=== PATIENT | female | born 1995 | race Caucasian/White ===

== ENCOUNTER 2023-05-06 12:39 | Emergency (ER) | payer BC ==
[~2023-05-06] VITALS: Ht 170.2 cm; Wt 89.8 kg
--- NOTE | 2023-05-06 13:11 | ED Abdominal Pain ---
General Stated Complaint: CRAMPING/ UNKOWN WEEKS Source of Information: Patient Exam Limitations: No Limitations History of Present Illness Date Seen by Provider: May 06, 2023 Time Seen by Provider: 13:09 Initial Comments Patient is a 28-year-old female who is G4, P3 presents to ED for concern for . She states she took a test at home 2 days ago tested positive. She states over the past month she has had some mild lower abdominal cramping. No specific abdominal bleeding. Last menstrual cycle was December 16. History of irregular menstrual cycles typically improves with exercise. She has lost 70 pounds since July but has been taking phentermine as well as fluoxetine. She stopped the medication 2 days ago. She called around to area [facility] and recommended to come the ED. She has no specific pain at this time. No history of hypertension or diabetes. She does report some morning sickness. She reports bloating sensation in her abdomen with very minimal cramping. She denies fever chills pain with urination frequent urination vaginal discharge, chest pain, shortness of breath, headache or dizziness. Patient in no acute distress. Allergies and Home Medications Allergies Coded Allergies: No Known Drug Allergies (Unverified , 05/06/23) Patient Home Medication List Home Medication List Reviewed: Yes Review of Systems Review of Systems Constitutional: No chills, No diaphoresis, No fever, No malaise, No weakness EENTM: No Double Vision, No Eye Pain Respiratory: Denies Cough, Denies Orthopnea Cardiovascular: Denies Chest Pain Gastrointestinal: Abdominal Pain; Denies Diarrhea; Nausea; Denies Vomiting Genitourinary: Denies Burning, Denies Discharge, Denies Drainage, Denies Frequency, Denies Flank Pain Musculoskeletal: No back pain, No joint pain Skin: No change in color, No change in hair/nails All Other Systems Reviewed Negative Unless Noted: Yes Physical Exam Vital Signs Vital Signs - First Documented 05/06/23 12:52 Temp 36.9 Pulse 82 Resp 19 B/P (MAP) 148/86 (106) O2 Delivery Room Air Capillary Refill : Height/Weight/BMI Height: '" Weight: lbs. oz. kg; BMI Method: General Appearance: WD/WN, no apparent distress HEENT: PERRL/EOMI, normal ENT inspection, TMs normal, pharynx normal Neck: non-tender, full range of motion, supple Respiratory: chest non-tender, lungs clear, normal breath sounds, no respiratory distress, no accessory muscle use Cardiovascular: regular rate, rhythm, no edema, no gallop, no JVD Gastrointestinal: normal bowel sounds, non tender, soft, no organomegaly, no pulsatile mass Extremities: normal range of motion, non-tender, normal inspection, no pedal edema Back: normal inspection, no CVA tenderness Neurologic/Psychiatric: weir fisher II-XII nml as tested, no motor/sensory deficits, alert, normal mood/affect, oriented x 3 Skin: normal color, warm/dry Progress/Results/Core Measures Results/Orders Lab Results Laboratory Tests Test 05/06/23 12:53 05/06/23 13:18 Range/Units Urine Color YELLOW Urine Clarity CLEAR Urine pH 7.0 5-9 Urine Specific [place] 1.020 1.016-1.022 Urine Protein NEGATIVE NEGATIVE Urine Glucose (UA) NEGATIVE NEGATIVE Urine Ketones NEGATIVE NEGATIVE Urine Nitrite NEGATIVE NEGATIVE Urine Bilirubin NEGATIVE NEGATIVE Urine Urobilinogen 1.0 < = 1.0 MG/DL Urine Leukocyte Esterase 1+ H NEGATIVE Urine RBC (Auto) NEGATIVE NEGATIVE Urine RBC NONE /HPF Urine WBC 2-5 /HPF Urine Squamous Epithelial Cells 2-5 /HPF Urine Crystals NONE /LPF Urine Bacteria MODERATE H /HPF Urine Casts NONE /LPF Urine Mucus NEGATIVE /LPF Urine Culture Indicated YES Urine Test POSITIVE NEGATIVE White Blood Count 8.6 4.3-11.0 10^3/uL Red Blood Count 4.44 3.80-5.11 10^6/uL Hemoglobin 13.1 11.5-16.0 g/dL Hematocrit 39 35-52 % Mean Corpuscular Volume 87 80-99 fL Mean Corpuscular Hemoglobin 30 25-34 pg Mean Corpuscular Hemoglobin Concent 34 32-36 g/dL Red Cell Distribution Width 13.4 10.0-14.5 % Platelet Count 282 130-400 10^3/uL Mean Platelet Volume 10.3 9.0-12.2 fL Immature Granulocyte % (Auto) 0 % Neutrophils (%) (Auto) 73 42-75 % Lymphocytes (%) (Auto) 18 12-44 % Monocytes (%) (Auto) 7 0-12 % Eosinophils (%) (Auto) 1 0-10 % Basophils (%) (Auto) 1 0-10 % Neutrophils # (Auto) 6.3 1.8-7.8 10^3/uL Lymphocytes # (Auto) 1.6 1.0-4.0 10^3/uL Monocytes # (Auto) 0.6 0.0-1.0 10^3/uL Eosinophils # (Auto) 0.1 0.0-0.3 10^3/uL Basophils # (Auto) 0.1 0.0-0.1 10^3/uL Immature Granulocyte # (Auto) 0.0 0.0-0.1 10^3/uL Sodium Level 135 135-145 MMOL/L Potassium Level 4.1 3.6-5.0 MMOL/L Chloride Level 103 98-107 MMOL/L Carbon Dioxide Level 25 21-32 MMOL/L Anion Gap 7 5-14 MMOL/L Blood Urea Nitrogen 11 7-18 MG/DL Creatinine 0.74 0.60-1.30 MG/DL Estimat Glomerular Filtration Rate 113 BUN/Creatinine Ratio 15 Glucose Level 85 70-105 MG/DL Calcium Level 9.4 8.5-10.1 MG/DL Corrected Calcium 9.2 8.5-10.1 MG/DL Total Bilirubin 0.4 0.1-1.0 MG/DL Aspartate Amino Transf (AST/SGOT) 17 5-34 U/L Alanine Aminotransferase (ALT/SGPT) 17 0-55 U/L Alkaline Phosphatase 64 40-136 U/L Total Protein 7.6 6.4-8.2 GM/DL Albumin 4.3 3.2-4.5 GM/DL Human Chorionic Gonadotropin, Quant 12261 H <5 MIU/ML My Orders Orders - SPARKLE BLANCHARD Ua Culture If Indicated (05/06/23 12:50) Hcg,Qualitative Urine (05/06/23 12:50) Cbc And Automated Diff (05/06/23 13:05) Comprehensive Metabolic Panel (05/06/23 13:05) Hcg,Quantitative (05/06/23 13:05) Abo Rh Type (05/06/23 13:05) Urine Culture (05/06/23 12:53) Ed Iv/Invasive Line Start (05/06/23 13:34) Vital Signs/I&O 05/06/23 12:52 Temp 36.9 Pulse 82 Resp 19 B/P (MAP) 148/86 (106) O2 Delivery Room Air Departure Communication (PCP) 28-year-old female G4, P3 presenting to the ED for concern for . Positive test 2 days ago. Not currently on control. She has been having morning sickness for the past month with bloating and mild lower abdominal cramping. No specific pain at this time. No vaginal bleeding or urinary symptoms. She is unsure how far along she is. History of regular menstrual cycle. Last menstrual cycle December 16. Currently on phentermine and fluoxetine but stopped 2 days ago when she found out she was . Soft abdomen without any tenderness. Vital signs stable. Denies history of hypertension or diabetes. Generalized lab work CBC, CMP, beta quant urinalysis with test. She did test positive for . Urinalysis without strong evidence of infection. No hematuria. CBC, CMP grossly unremarkable. Rh+. Beta quant 39,000. Do not have ultrasound on the weekends. Bedside ultrasound did note a intrauterine with cardiac activity noted. Not concern for ectopic. At this time recommend stopping the phentermine and fluoxetine. Start prenatals. Provided [facility] outpatient follow-up. She needs a more formal ultrasound. Did provide some providers to follow-up with. If any worsening pain fever vomiting vaginal bleeding to return back to ED. Impression Primary Impression: Disposition: 01 HOME, SELF-CARE Condition: Stable Departure-Patient Inst. Decision time for Depature: 14:13 Referrals: DEBORAH POMPA APRN (PCP) Primary Care Physician [facility]JAI KEE DO Patient Instructions: How to Adapt to Physical Changes During Add. Discharge Instructions: Provided Dr. Ndiaye to follow-up outpatient. May consider following up with [facility]. Need a formal ultrasound. Recommend prenatals. Discussed with [facility] [employer] change in medication. SPARKLE BLANCHARD May 06, 2023 13:11
[2023-05-06 13:19] LABS: CLARITY,URINE CLEAR; COLOR,URINE YELLOW; GLUCOSE, URINE (UA) NEGATIVE (NEGATIVE); PROTEIN,URINE NEGATIVE (NEGATIVE)
[2023-05-06 13:20] LABS: BACTERIA,URINE MODERATE /HPF; BILIRUBIN,URINE NEGATIVE (NEGATIVE); KETONES,URINE NEGATIVE (NEGATIVE); LEUKOCYTE ESTERASE ,URINE 1+ (NEGATIVE); NITRITE,URINE NEGATIVE (NEGATIVE)
[2023-05-06 13:30] LABS: BASOPHILS # (AUTO) 0.1 10^3/uL (0.0-0.1); BASOPHILS % (AUTO) 1 % (0-10); EOSINOPHILS # (AUTO) 0.1 10^3/uL (0.0-0.3); EOSINOPHILS % (AUTO) 1 % (0-10); HEMATOCRIT 39 % (35-52); HEMOGLOBIN 13.1 g/dL (11.5-16.0); LYMPHOCYTES # (AUTO) 1.6 10^3/uL (1.0-4.0); LYMPHOCYTES % (AUTO) 18 % (12-44); MEAN CORPUSCULAR HEMOGLOBIN 30 pg (25-34); MEAN CORPUSCULAR HGB CONC 34 g/dL (32-36); MEAN CORPUSCULAR VOLUME 87 fL (80-99); MEAN PLATELET VOLUME 10.3 fL (9.0-12.2); MONOCYTES # (AUTO) 0.6 10^3/uL (0.0-1.0); MONOCYTES % (AUTO) 7 % (0-12); NEUTROPHILS # (AUTO) 6.3 10^3/uL (1.8-7.8); NEUTROPHILS % (AUTO) 73 % (42-75); PLATELET COUNT 282 10^3/uL (130-400); WHITE BLOOD COUNT 8.6 10^3/uL (4.3-11.0)
[2023-05-06 13:37] LABS: ALBUMIN 4.3 GM/DL (3.2-4.5)
[2023-05-06 13:38] LABS: POTASSIUM 4.1 MMOL/L (3.6-5.0)
[2023-05-06 13:39] LABS: CALCIUM 9.4 MG/DL (8.5-10.1)
[2023-05-06 13:40] LABS: TOTAL PROTEIN 7.6 GM/DL (6.4-8.2)
[2023-05-06 13:42] LABS: BILIRUBIN,TOTAL 0.4 MG/DL (0.1-1.0)
[2023-05-06 13:43] LABS: CREATININE SERUM 0.74 MG/DL (0.60-1.30)
[2023-05-06 14:34] VITALS: BP 134/76
== END 2023-05-06 14:34 | disposition home or self-care (01) ==
LOC: ER 12:45
DX: O26.899 Other specified pregnancy related conditions, unspecified trimester (principal); R10.9 Unspecified abdominal pain; Z3A.00 Weeks of gestation of pregnancy not specified
CPT/HCPCS: 36415; 80053; 81000; 84702; 84703; 85025; 86900; 86901; 87077; 87088; 87186